=== PATIENT | male | born 1955 | race Caucasian/White ===

== ENCOUNTER → 2021-07-10 | Outpatient (CLI) | payer MEDICARE ==
[~2021-07-10] MED LIST: ASPI325 PO; CITA20 PO; METF500 PO; Norco 5-325 Ta1 EACH PO; TAMS.4ER PO; TIZA4 PO
== END | disposition home or self-care (01) ==
LOC: LAB SHORT 10:35
DX: D48.5 Neoplasm of uncertain behavior of skin (principal); L08.9 Local infection of the skin and subcutaneous tissue, unspecified
CPT/HCPCS: 87070; 87077; 87186; 87205